=== PATIENT | female | born 1995 | race Hispanic/Latino ===

== ENCOUNTER 2017-07-22 16:46 | Emergency (ER) | payer MEDICAID ==
[2017-07-22 17:15] LABS: BASOPHILS % (AUTO) 0.4 % (0.0-5.0); EOSINOPHILS % (AUTO) 4.6 % (0.0-8.0); HEMATOCRIT 39.1 % (36-48); LYMPHOCYTES % (AUTO) 23.4 % (21.0-51.0); MEAN CORPUSCULAR HEMOGLOBIN 30.3 pg (27.0-33.0); MEAN CORPUSCULAR HGB CONC 35.1 g/dL (32.0-36.0); MEAN CORPUSCULAR VOLUME 86.3 fL (79-99); MONOCYTES % (AUTO) 4.6 % (3.0-13.0); PLATELET COUNT (AUTO) 335 K/uL (130-400); RED BLOOD CELL COUNT(AUTO) 4.53 MIL/uL (4.00-5.50)
[2017-07-22 17:25] LABS: INR 0.92 (0.85-1.15); PARTIAL THROMBOPLASTIN TIME 27.8 SEC (26.3-35.5); PROTHROMBIN TIME 9.7 SEC (9.6-11.6)
[2017-07-22 17:26] LABS: CREATININE 0.7 mg/dL (0.5-1.5); POTASSIUM 3.6 mmol/L (3.5-5.1)
[2017-07-22 17:30] LABS: APPEARANCE,URINE Turbid (CLEAR); BILIRUBIN,URINE Negative (NEGATIVE); COLOR,URINE Yellow (YELLOW); GLUCOSE, URINE (UA) Negative (NEGATIVE); KETONES,URINE Negative (NEGATIVE); LEUKOCYTE ESTERASE ,URINE Negative (NEGATIVE); NITRATE,URINE Negative (NEGATIVE); OCCULT BLOOD,URINE Negative (NEGATIVE); PH,URINE >=9.0 (5.0-8.0); PROTEIN,URINE Negative (NEGATIVE); UROBILINOGEN,URINE 0.2 mg/dL (0.2-1.0)
[2017-07-22 17:30] LABS: BILIRUBIN,TOTAL 0.1 mg/dL (0.2-1.0); TOTAL PROTEIN, SERUM 8.6 g/dL (6.0-8.3)
[2017-07-22 17:37] LABS: AMORPHOUS SEDIMENT,UR Many /LPF (None Seen); BACTERIA,URINE Few /HPF (None Seen); RBC,URINE None Seen /HPF (0-1); SQUAMOUS EPITHELIAL CELL,UR 0-2 /HPF (0-2); WBC,URINE None Seen /HPF (0-1)
== END 2017-07-22 18:17 | disposition home or self-care (01) ==
LOC: EDH 16:46
DX: K62.5 Hemorrhage of anus and rectum (principal)
CPT/HCPCS: 36415; 80053; 81001; 82270; 83690; 84703; 85025; 85610; 85730

== ENCOUNTER 2018-06-30 14:37 | Emergency (ER) | payer MEDICAID ==
[2018-06-30] MEDS ORDERED: SODIUM CHLORIDE 0.9% 1000ML 1,000 ML IV ONE (16:01)
[2018-06-30] MEDS ORDERED: ONDANSETRON HCL 4 MG/2 ML VIAL ONE (16:02)
[2018-06-30] MEDS ORDERED: FAMOTIDINE/PF 20 MG/2 ML VIAL IV ONE (16:02)
[2018-06-30 16:07] LABS: BASOPHILS % (AUTO) 0.1 % (0.0-5.0); EOSINOPHILS % (AUTO) 1.9 % (0.0-8.0); HEMATOCRIT 38.3 % (36-48); LYMPHOCYTES % (AUTO) 5.8 % (21.0-51.0); MEAN CORPUSCULAR HEMOGLOBIN 30.2 pg (27.0-33.0); MEAN CORPUSCULAR HGB CONC 34.9 g/dL (32.0-36.0); MEAN CORPUSCULAR VOLUME 86.3 fL (79-99); MONOCYTES % (AUTO) 4.2 % (3.0-13.0); PLATELET COUNT (AUTO) 225 K/uL (130-400); RED BLOOD CELL COUNT(AUTO) 4.44 MIL/uL (4.00-5.50); RED CELL DISTRIBUTION WIDTH 12.3 % (11.0-15.5)
[2018-06-30 16:15] LABS: APPEARANCE,URINE Clear (CLEAR); BILIRUBIN,URINE Negative (NEGATIVE); COLOR,URINE Yellow (YELLOW); GLUCOSE, URINE (UA) Negative (NEGATIVE); KETONES,URINE >=160 mg/dL (NEGATIVE); LEUKOCYTE ESTERASE ,URINE Negative (NEGATIVE); NITRATE,URINE Negative (NEGATIVE); OCCULT BLOOD,URINE Negative (NEGATIVE); PH,URINE 5.5 (5.0-8.0); PROTEIN,URINE Trace mg/dL (NEGATIVE)
[2018-06-30 16:42] LABS: CREATININE 0.5 mg/dL (0.5-1.5); POTASSIUM 3.4 mmol/L (3.5-5.1)
[2018-06-30 16:46] LABS: ALBUMIN 3.2 g/dL (3.5-5.0); BILIRUBIN,TOTAL 0.4 mg/dL (0.2-1.0); TOTAL PROTEIN, SERUM 7.7 g/dL (6.0-8.3)
[2018-06-30 16:47] LABS: BACTERIA,URINE Few /HPF (None Seen); MUCUS,URINE Few LPF (None Seen); RBC,URINE None Seen /HPF (0-1); SQUAMOUS EPITHELIAL CELL,UR 0-2 /HPF (0-2); WBC,URINE 0-1 /HPF (0-1)
== END 2018-06-30 17:38 | disposition home or self-care (01) ==
LOC: EDH 14:37
DX: O21.8 Other vomiting complicating pregnancy (principal); R10.13 Epigastric pain; F41.9 Anxiety disorder, unspecified; Z3A.14 14 weeks gestation of pregnancy
CPT/HCPCS: 36415; 80053; 81001; 83690; 85025; 96361; 96374; 96375; 99284; J2405; J3490; J7030

== ENCOUNTER 2018-09-02 20:56 | Observation (INO) | payer MEDICAID ==
[~2018-09-02] VITALS: Ht 152.4 cm; Wt 59.9 kg
[2018-09-02] MEDS ORDERED: LACTATED RINGERS 1000ML 1,000 ML IV SCH (21:15)
[2018-09-02] MEDS ORDERED: AEC81 PO (21:21)
[2018-09-02] MEDS ORDERED: ENOX40DI8 SQ (21:21)
[2018-09-02] MEDS ORDERED: PREN-196 PO (21:21)
[2018-09-02 21:53] LABS: APPEARANCE,URINE Clear (CLEAR); BILIRUBIN,URINE Negative (NEGATIVE); COLOR,URINE Yellow (YELLOW); GLUCOSE, URINE (UA) Negative (NEGATIVE); KETONES,URINE Negative (NEGATIVE); LEUKOCYTE ESTERASE ,URINE Negative (NEGATIVE); NITRATE,URINE Negative (NEGATIVE); OCCULT BLOOD,URINE Negative (NEGATIVE); PH,URINE 7.5 (5.0-8.0); PROTEIN,URINE Negative (NEGATIVE); UROBILINOGEN,URINE 0.2 mg/dL (0.2-1.0)
[2018-09-02 22:04] LABS: AMPHET/METH SCREEN,URINE NEGATIVE (NEGATIVE); BARBITURATE SCREEN, URINE NEGATIVE (NEGATIVE); BENZODIAZEPINES SCREEN,URINE NEGATIVE (NEGATIVE); CANNABINOID SCREEN,URINE NEGATIVE (NEGATIVE); COCAINE SCREEN,URINE NEGATIVE (NEGATIVE); OPIATE SCREEN,URINE NEGATIVE (NEGATIVE); PHENCYCLIDINE SCREEN,URINE NEGATIVE (NEGATIVE)
== END 2018-09-02 22:50 | disposition home or self-care (01) ==
LOC: EDH 20:56 → LDH 21:15
PROVIDERS: ADMIT Obstetrics & Gynecology; ATTEND Obstetrics & Gynecology
DX: O26.892 Other specified pregnancy related conditions, second trimester (principal); R10.30 Lower abdominal pain, unspecified; O99.612 Diseases of the digestive system complicating pregnancy, second trimester; K59.00 Constipation, unspecified; Z3A.23 23 weeks gestation of pregnancy; Z79.899 Other long term (current) drug therapy
CPT/HCPCS: 80305; 81003; 99284; G0378 ×2

== ENCOUNTER 2019-03-27 17:55 | Emergency (ER) | payer MEDICAID, OTHER ==
[~2019-03-27 17:55] MED LIST: AEC81 PO; ENOX40DI8 SQ; PREN-196 PO
[2019-03-27] MEDS ORDERED: DIPHENHYDRAMINE HCL 25 MG CAPSULE ONE (18:29)
== END 2019-03-27 18:50 | disposition home or self-care (01) ==
LOC: EDH 17:55
DX: R21 Rash and other nonspecific skin eruption (principal); T50.995A Adverse effect of other drugs, medicaments and biological substances, initial encounter; F41.9 Anxiety disorder, unspecified; Z90.49 Acquired absence of other specified parts of digestive tract; Z98.890 Other specified postprocedural states; Y92.89 Other specified places as the place of occurrence of the external cause
CPT/HCPCS: 99282; Q0163

== ENCOUNTER 2019-05-14 22:18 | Inpatient (IN) | payer SELFPAY ==
[~2019-05-14] VITALS: Ht 152.4 cm; Wt 58.0 kg
[2019-05-14 22:38] LABS: APPEARANCE,URINE Clear (CLEAR); BILIRUBIN,URINE Negative (NEGATIVE); COLOR,URINE Yellow (YELLOW); GLUCOSE, URINE (UA) Negative (NEGATIVE); KETONES,URINE Negative (NEGATIVE); LEUKOCYTE ESTERASE ,URINE Negative (NEGATIVE); NITRATE,URINE Negative (NEGATIVE); OCCULT BLOOD,URINE Negative (NEGATIVE); PROTEIN,URINE Negative (NEGATIVE); UROBILINOGEN,URINE 0.2 mg/dL (0.2-1.0)
[2019-05-14 22:43] LABS: HCG,QUAL RESULT NEGATIVE (NEGATIVE)
[2019-05-14 23:11] LABS: BASOPHILS % (AUTO) 0.3 % (0.0-5.0); EOSINOPHILS % (AUTO) 2.9 % (0.0-8.0); HEMATOCRIT 40.5 % (36-48); LYMPHOCYTES % (AUTO) 10.6 % (21.0-51.0); MEAN CORPUSCULAR HEMOGLOBIN 28.5 pg (27.0-33.0); MEAN CORPUSCULAR HGB CONC 33.8 g/dL (32.0-36.0); MEAN CORPUSCULAR VOLUME 84.4 fL (79-99); NEUTROPHILS % (AUTO) 79.6 % (40.0-77.0); PLATELET COUNT (AUTO) 424 K/uL (130-400); RED CELL DISTRIBUTION WIDTH 12.6 % (11.0-15.5); WHITE BLOOD COUNT (AUTO) 24.8 K/uL (4.8-10.8)
[2019-05-14 23:26] LABS: CARBON DIOXIDE 28 mmol/L (21-32); CHLORIDE 103 mmol/L (101-111); CREATININE 0.6 mg/dL (0.5-1.5); GLOMERULAR FILTR. RATE CALC 129 mL/min (>60); GLUCOSE,RANDOM 125 mg/dL (70-105); POTASSIUM 3.2 mmol/L (3.5-5.1); SODIUM SERUM 141 mmol/L (136-145); UREA NITROGEN, BLOOD 10 mg/dL (7-18)
[2019-05-14 23:37] LABS: ALANINE AMINOTRANSFERASE 69 U/L (12-78); ALCOHOL, BLOOD 51 mg/dL (0-10); ASPARTATE AMINOTRANSFERASE 90 U/L (10-37); BILIRUBIN,TOTAL 0.4 mg/dL (0.2-1.0); TOTAL PROTEIN, SERUM 8.4 g/dL (6.0-8.3)
[2019-05-14 23:40] LABS: SALICYLATE < 2.8 mg/dL (2.8-20.0)
[2019-05-14 23:41] LABS: ACETAMINOPHEN 74 mcg/mL (10-30)
[2019-05-14 23:42] LABS: AMPHET/METH SCREEN,URINE NEGATIVE (NEGATIVE); BARBITURATE SCREEN, URINE NEGATIVE (NEGATIVE); BENZODIAZEPINES SCREEN,URINE NEGATIVE (NEGATIVE); CANNABINOID SCREEN,URINE NEGATIVE (NEGATIVE); COCAINE SCREEN,URINE NEGATIVE (NEGATIVE); OPIATE SCREEN,URINE NEGATIVE (NEGATIVE); PHENCYCLIDINE SCREEN,URINE NEGATIVE (NEGATIVE)
[2019-05-15] MEDS ORDERED: PHARMACY COMMUNICATION MISC PRN (02:15)
[2019-05-15] MEDS ORDERED: CHLORDIAZEPOXIDE HCL 25 MG CAP PO PRN ×2 (02:15)
[2019-05-15] MEDS ORDERED: IBUPROFEN 200 MG TAB PO PRN (02:15)
[2019-05-15] MEDS ORDERED: LACTULOSE 20 GM/30 ML UDCUP PO PRN (02:15)
[2019-05-15] MEDS ORDERED: LORAZEPAM 2 MG/ML 1 ML VIAL IVP PRN ×2 (02:15)
[2019-05-15] MEDS ORDERED: ONDANSETRON HCL 4 MG/2 ML VIAL IV PRN (02:15)
[2019-05-15] MEDS ORDERED: POTASSIUM CHLORIDE 10% ELIXIR 20 MEQ/15 ML UDCUP PO PRN (02:30)
[2019-05-15] MEDS ORDERED: POTASSIUM CHLORIDE 10MEQ/100ML 100 ML IV PRN (02:30)
[2019-05-15] MEDS ORDERED: POTASSIUM CHLORIDE 20 MEQ ERTAB PO PRN (02:30)
[2019-05-15] MEDS ORDERED: LIDOCAINE HCL-MPF 1% 2ML VIAL IV PRN (02:30)
[2019-05-15 02:45] LABS: INR 0.99 (0.85-1.15); PARTIAL THROMBOPLASTIN TIME 28.7 SEC (26.3-35.5); PROTHROMBIN TIME 10.7 SEC (9.6-11.6)
[2019-05-15] MEDS: SODIUM CHLORIDE 0.9% 1000ML 1,000 ML IV SCH ×3 (03:43→22:10)
--- NOTE | 2019-05-15 04:45 | NUR ---
PATIENT ADMITTED FROM ER, AAOX3, NO ACUTE DISTRESS NOTED. DX ETOH AND ACETAMINOPHEN TOXICITY. PT WITH 1:1 SITTER D/T RECENT SUICIDE IDEATION AND POST DEPRESSION. POC DISCUSSED WITH PATIENT, WILL CONT TO MONITOR CLOSELY. PENDING EVALUATION BY PSYCH IN A.M.
[2019-05-15 05:17] LABS: BASOPHILS % (AUTO) 0.3 % (0.0-5.0); EOSINOPHILS % (AUTO) 2.7 % (0.0-8.0); HEMATOCRIT 35.4 % (36-48); LYMPHOCYTES % (AUTO) 22.6 % (21.0-51.0); MEAN CORPUSCULAR HEMOGLOBIN 28.3 pg (27.0-33.0); MEAN CORPUSCULAR HGB CONC 33.1 g/dL (32.0-36.0); MEAN CORPUSCULAR VOLUME 85.7 fL (79-99); MONOCYTES % (AUTO) 4.8 % (3.0-13.0); NEUTROPHILS % (AUTO) 69.2 % (40.0-77.0); PLATELET COUNT (AUTO) 253 K/uL (130-400); RED BLOOD CELL COUNT(AUTO) 4.13 MIL/uL (4.00-5.50); RED CELL DISTRIBUTION WIDTH 12.9 % (11.0-15.5); WHITE BLOOD COUNT (AUTO) 9.7 K/uL (4.8-10.8)
[2019-05-15 05:32] LABS: CREATININE 0.7 mg/dL (0.5-1.5); POTASSIUM 4.1 mmol/L (3.5-5.1)
[2019-05-15] MEDS ORDERED: ENOXAPARIN SODIUM 40 MG/0.4 ML SYRINGE SQ SCH (09:00)
[2019-05-15 09:09] LABS: AMMONIA < 3 umol/L (11-32)
--- NOTE | 2019-05-15 09:10 | NUR ---
INFECTION CONTROLLED NOTIFIED CASE#[id number] SPOKE WITH FLORES KNIGHT FROM [place], REPEAT ACETA LEVEL AT 0900 IS (5 MCG/ML) STATES CALL BACK WITH AST AND ALT LEVELS AND ASPIRIN LEVEL FOR FINAL RECOMMENDATIONS, FOR NOW NO NEED TO TREAT UNLESS AST IS ELEVATED OR ASPIRIN.
--- NOTE | 2019-05-15 09:10 | NUR ---
(CORRECTED NOTE) POISON CONTROL NOTIFIED CASE#[id number] SPOKE WITH FLORES KNIGHT FROM [place], REPEAT ACETA LEVEL AT 0900 IS (5 MCG/ML) STATES CALL BACK WITH AST AND ALT LEVELS AND ASPIRIN LEVEL FOR FINAL RECOMMENDATIONS, FOR NOW NO NEED TO TREAT UNLESS AST IS ELEVATED OR ASPIRIN.
[2019-05-15 09:25] LABS: ALANINE AMINOTRANSFERASE 102 U/L (12-78); ALBUMIN 3.2 g/dL (3.5-5.0); ASPARTATE AMINOTRANSFERASE 75 U/L (10-37); BILIRUBIN,DIRECT 0.1 mg/dL (0.0-0.3); BILIRUBIN,TOTAL 0.2 mg/dL (0.2-1.0); TOTAL PROTEIN, SERUM 6.8 g/dL (6.0-8.3)
--- NOTE | 2019-05-15 09:34 | NUR ---
CALLED INFECTION CONTROLLED WITH AST/ALT/ACETA LEVELS SPOKE WITH FLORES PHOENIX FROM [facility], STATES NO NEED TO TREAT SINCE ACETAMINOPHEN LEVELS DROPPED, I WOULD RECOMMEND ANOTHER LFT AND ACETA LEVEL, DUE TO ALT ELEVATION. BUT FROM OUR STANDPOINT PATIENT IS CLEARED TO BE SEEN BY PSYCH AND WE WILL CLOSE THE CASE.
--- NOTE | 2019-05-15 09:34 | NUR ---
(CORRECTED NOTE) CALLED POISON CONTROLLED WITH AST/ALT/ACETA LEVELS SPOKE WITH FLORES PHOENIX FROM [facility], STATES NO NEED TO TREAT SINCE ACETAMINOPHEN LEVELS DROPPED, I WOULD RECOMMEND ANOTHER LFT AND ACETA LEVEL, DUE TO ALT ELEVATION. BUT FROM OUR STANDPOINT PATIENT IS CLEARED TO BE SEEN BY PSYCH AND WE WILL CLOSE THE CASE.
[2019-05-15] MEDS: THIAMINE HCL 100 MG/ML 2ML VIAL IM SCH (09:45)
[2019-05-15] MEDS: FOLIC ACID 1 MG TABLET PO SCH (09:45)
[2019-05-15 09:46] VITALS: BP 94/57
[2019-05-15] MEDS: MULTIVITAMIN TABLET PO SCH (09:46)
[2019-05-15] MEDS: FAMOTIDINE 20MG TAB 20 MG TAB PO SCH ×2 (09:46→19:49)
--- NOTE | 2019-05-15 10:20 | NUR ---
DR. CABRAL AWARE PT C/O CHEST PAIN ORDERS ENTERED.
--- NOTE | 2019-05-15 10:26 | NUR ---
DR. VERGARA OFFICE NOTIFIED OF CASE.
[2019-05-15 11:07] VITALS: BP 121/73
--- NOTE | 2019-05-15 11:10 | NUR ---
DR. CABRAL AWARE OF EKG STATES I WILL ENTER ORDERS.
--- NOTE | 2019-05-15 11:32 | NUR ---
[facility] CM met with pt, currently has 1:1, discussed dc plans. Pt is independent prior to admission, lives at home alone, grandmother lives close by and checks on her. Pt verbalized she does not have suicidial ideation at this time, she does feel depressed and goes to [facility] for depression. Denies any other equipments/services. Feels safe to go back home, grandmother Germania Campos able to assist with transportation and need as necessary. DC plan to home vs psych. CM to cont to follow up. Addendum: 05/15/19 at 1134 by NARENDRA ALCANTARA LVN CM Amended: Links added.
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
[2019-05-15] MEDS ORDERED: IOHEXOL-350 75 ML VIAL IV ONE (14:13)
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
--- NOTE | 2019-05-15 15:40 | NUR ---
PTs MOTHER JAMES HARMAN [phone]
[2019-05-15 16:00] VITALS: BP 120/72
[2019-05-15 17:23] LABS: ALANINE AMINOTRANSFERASE 78 U/L (12-78); ALBUMIN 3.1 g/dL (3.5-5.0); ASPARTATE AMINOTRANSFERASE 43 U/L (10-37); BILIRUBIN,DIRECT 0.1 mg/dL (0.0-0.3); BILIRUBIN,TOTAL 0.2 mg/dL (0.2-1.0); TOTAL PROTEIN, SERUM 6.6 g/dL (6.0-8.3)
[2019-05-15 17:27] LABS: ACETAMINOPHEN < 1 mcg/mL (10-30)
[2019-05-15 19:00] VITALS: BP 120/78
[2019-05-15] MEDS ORDERED: SERTRALINE HCL 50 MG TABLET ONE (19:47)
[2019-05-15] MEDS: ENOXAPARIN SODIUM 40 MG/0.4 ML SYRINGE SQ SCH (21:00)
[2019-05-15] MEDS ORDERED: SERTRALINE HCL 50 MG TABLET PO SCH (21:00)
[2019-05-15 23:05] VITALS: BP 118/62
[2019-05-16 03:05] VITALS: BP 105/65
[2019-05-16 05:39] LABS: BASOPHILS % (AUTO) 0.3 % (0.0-5.0); EOSINOPHILS % (AUTO) 7.5 % (0.0-8.0); HEMATOCRIT 33.4 % (36-48); LYMPHOCYTES % (AUTO) 28.2 % (21.0-51.0); MEAN CORPUSCULAR HEMOGLOBIN 27.8 pg (27.0-33.0); MEAN CORPUSCULAR HGB CONC 32.3 g/dL (32.0-36.0); MEAN CORPUSCULAR VOLUME 86.1 fL (79-99); MONOCYTES % (AUTO) 4.9 % (3.0-13.0); NEUTROPHILS % (AUTO) 58.8 % (40.0-77.0); PLATELET COUNT (AUTO) 221 K/uL (130-400); RED BLOOD CELL COUNT(AUTO) 3.88 MIL/uL (4.00-5.50); RED CELL DISTRIBUTION WIDTH 13.2 % (11.0-15.5); WHITE BLOOD COUNT (AUTO) 7.5 K/uL (4.8-10.8)
[2019-05-16 06:01] LABS: ALANINE AMINOTRANSFERASE 57 U/L (12-78); ALBUMIN 2.9 g/dL (3.5-5.0); ASPARTATE AMINOTRANSFERASE 25 U/L (10-37); BILIRUBIN,TOTAL 0.3 mg/dL (0.2-1.0); CARBON DIOXIDE 26 mmol/L (21-32); CHLORIDE 104 mmol/L (101-111); CREATININE 0.6 mg/dL (0.5-1.5); GLOMERULAR FILTR. RATE CALC 129 mL/min (>60); GLUCOSE,RANDOM 88 mg/dL (70-105); POTASSIUM 3.5 mmol/L (3.5-5.1); SODIUM SERUM 139 mmol/L (136-145); TOTAL PROTEIN, SERUM 6.2 g/dL (6.0-8.3); UREA NITROGEN, BLOOD 10 mg/dL (7-18)
[2019-05-16 06:02] LABS: ACETAMINOPHEN < 1 mcg/mL (10-30)
[2019-05-16 08:00] VITALS: BP 114/79
[2019-05-16] MEDS: FOLIC ACID 1 MG TABLET PO SCH (10:17)
[2019-05-16] MEDS: MULTIVITAMIN TABLET PO SCH (10:17)
[2019-05-16] MEDS: THIAMINE HCL 100 MG/ML 2ML VIAL IM SCH (10:18)
[2019-05-16] MEDS: FAMOTIDINE 20MG TAB 20 MG TAB PO SCH (10:18)
[2019-05-16] MEDS: ENOXAPARIN SODIUM 40 MG/0.4 ML SYRINGE SQ SCH (10:18)
[2019-05-16] MEDS ORDERED: THIAMINE HCL 100 MG TABLET PO SCH (10:30)
[2019-05-16 11:00] VITALS: BP 113/75
--- NOTE | 2019-05-16 12:03 | NUR ---
SPOKE WITH JUDIT FROM [facility] REGARDING MEDICALLY CLEARED AND MD ORDER TO SCREEN PATIENT . PER JUDIT WILL SURVEILLANCE OFFICER ,PENDING CALL BACK
--- NOTE | 2019-05-16 14:45 | NUR ---
CALLED TO [facility] AGAIN ON PENDING SCREENING ,SPOKE WITH STEPHON, PER STEPHON WORKER HAS BEEN CALLED AND MAYBE A LITTLE BEHIND ON VISIT . WILL CALL AGAIN FOR FOLLOW UP .. PENDING CALL BACK
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
[2019-05-16 16:26] VITALS: BP 122/76
--- NOTE | 2019-05-16 16:36 | NUR ---
CALL BACK FROM RUTH FROM [facility] .. PER RUTH WILL DO SCREENING WITH PATIENT ON HER PHONE .. INFORMED PATIENT AWARE AND AGREED FOR SCREENING .. PER RUTH WILL LET US KNOW ON CONCLUSION. PENDING CALL BACK FROM RUTH
--- NOTE | 2019-05-16 17:20 | NUR ---
CALL BACK FROM RUTH FROM [facility] .. PER RUTH,PATIENT DOES NOT MEET CRITERIA FOR INPT AND IS NOT AT RISK ..PATIENT HAS FOLLOW UP APPT ON 05/22/2019 AT 3PM PER RUTH ,AND THEY WILL CALL PATIENT TOMORROW . PER RUTH THEY KNOW PATIENT AND IS VERY COMPLIANT .. SHE WILL FAX OVER REPORT .
[2019-05-16] MEDS ORDERED: SERT50TA PO (18:08)
--- NOTE | 2019-05-16 19:02 | NUR ---
DISCHARGE INSTRUCTION PROVIDED TO PATIENT ,LET PATIENT KNOW PRESCRIPTION SENT ELECTRONICALLY TO HER PHARMACY .. PER RAVI HAS ENOUGH FOR THE WEEKEND ON MEDICATION AND WILL METAL MELTER NEW SCRIPT ON SUNDAY ..
--- NOTE | 2019-05-16 19:49 | NUR ---
SPOKE WITH JAMES MOTHER OF PATIENT VIA PHONE INFORMED HER OF DISCHARGE ORDER AND NEW SCRIPYT . ALSO LETR HER KNOW RECOMMENDATION FOR A FAMILY MEMBER TO STAY WITH PATIENT PER MOM WILL MAKE SURE SOMEONE WILL STAY WITH HER DAUGHTER
== END 2019-05-16 19:45 | disposition home or self-care (01) | DRG 918 ==
LOC: EDH 22:18 → EDHIP 22:19 → OBSVTOIN 22:19 → 3DH 05-15 03:04
PROVIDERS: ADMIT Internal Medicine; ATTEND Internal Medicine
DX: T39.1X1A Poisoning by 4-Aminophenol derivatives, accidental (unintentional), initial encounter (principal); F32.2 Major depressive disorder, single episode, severe without psychotic features; B17.9 Acute viral hepatitis, unspecified; Y90.2 Blood alcohol level of 40-59 mg/100 ml; F41.9 Anxiety disorder, unspecified; D72.829 Elevated white blood cell count, unspecified; E87.6 Hypokalemia; F10.129 Alcohol abuse with intoxication, unspecified; R07.81 Pleurodynia; Z79.899 Other long term (current) drug therapy; Y92.89 Other specified places as the place of occurrence of the external cause
CPT/HCPCS: 36415; 71045; 71275; 80048; 80053; 80076; 80305; 81003; 81025; 82140; 83605; 84484; 85025; 85378; 85610; 85730; 87040; 93005; 93306; 93356; 93970; 99291; G0378; G0480; G0481; J1650; J3411; J7030; Q9967

== ENCOUNTER 2019-07-21 22:14 | Emergency (ER) | payer OTHER, SELFPAY ==
[~2019-07-21 22:14] MED LIST changes: -ENOX40DI8 SQ; +SERT50TA PO
[2019-07-22] MEDS ORDERED: BENZONATATE 100 MG CAPSULE PO ONE (00:27)
== END 2019-07-22 00:41 | disposition home or self-care (01) ==
LOC: EDH 22:14
DX: S29.012A Strain of muscle and tendon of back wall of thorax, initial encounter (principal); B34.9 Viral infection, unspecified; R09.82 Postnasal drip; Z20.828 Contact with and (suspected) exposure to other viral communicable diseases; F41.9 Anxiety disorder, unspecified; Z90.49 Acquired absence of other specified parts of digestive tract; Z98.890 Other specified postprocedural states; X58.XXXA Exposure to other specified factors, initial encounter; Y93.89 Activity, other specified; Y92.89 Other specified places as the place of occurrence of the external cause; Y99.8 Other external cause status
CPT/HCPCS: 99283; U0003; 36415

== ENCOUNTER 2021-02-19 12:54 | Emergency (ER) | payer BC, OTHER ==
[~2021-02-19] VITALS: Ht 152.4 cm; Wt 60.8 kg
[2021-02-19 13:00] VITALS: BP 108/69
[2021-02-19] MEDS ORDERED: DiphenhydrAMINE HCL 50 MG/ML VIAL IV ONE (13:30)
[2021-02-19] MEDS ORDERED: SOLU-MEDROL 40MG VIAL IVP ONE (13:30)
[2021-02-19] MEDS ORDERED: FAMOTIDINE 20MG VIAL IV ONE (13:30)
== END 2021-02-19 14:12 | disposition home or self-care (01) ==
LOC: EDH 12:54
DX: T78.40XA Allergy, unspecified, initial encounter (principal); F41.9 Anxiety disorder, unspecified; Z90.49 Acquired absence of other specified parts of digestive tract; Z98.890 Other specified postprocedural states; Z79.899 Other long term (current) drug therapy; X58.XXXA Exposure to other specified factors, initial encounter
CPT/HCPCS: 96374; 96375; 99284; J1200; J2920; J3490

== ENCOUNTER 2021-04-30 10:01 | Emergency (ER) | payer BC ==
[~2021-04-30] VITALS: Ht 152.4 cm; Wt 61.2 kg
[2021-04-30 10:31] LABS: APPEARANCE,URINE TURBID (CLEAR); BILIRUBIN,URINE NEGATIVE (NEGATIVE); COLOR,URINE YELLOW (YELLOW); GLUCOSE, URINE (UA) NEGATIVE (NEGATIVE); KETONES,URINE NEGATIVE (NEGATIVE); LEUKOCYTE ESTERASE ,URINE MODERATE (NEGATIVE); NITRATE,URINE POSITIVE (NEGATIVE); OCCULT BLOOD,URINE LARGE (NEGATIVE); PROTEIN,URINE 30 mg/dL (NEGATIVE)
[2021-04-30 10:46] LABS: RBC,URINE TNTC /HPF (0-1)
[2021-04-30 10:47] LABS: BACTERIA,URINE Rare /HPF (None Seen); SQUAMOUS EPITHELIAL CELL,UR Few /HPF (0-2); WBC,URINE 51-100 /HPF (0-1)
[2021-04-30] MEDS ORDERED: NITR100C4 PO (11:22)
[2021-04-30] MEDS ORDERED: PHEN-847 PO (11:22)
[2021-04-30 11:35] VITALS: BP 116/83
== END 2021-04-30 11:41 | disposition home or self-care (01) ==
LOC: EDH 10:01
DX: N39.0 Urinary tract infection, site not specified (principal); F41.9 Anxiety disorder, unspecified; F32.A Depression, unspecified; Z79.82 Long term (current) use of aspirin; Z79.899 Other long term (current) drug therapy; Z90.49 Acquired absence of other specified parts of digestive tract
CPT/HCPCS: 81001; 81025; 87088